=== PATIENT | female | born 1980 | race Caucasian/White ===

== ENCOUNTER → 2020-04-12 | Outpatient (CLI) | payer OTHER ==
[~2020-04-12] MED LIST: ALBU8.5H8 INH; DULO60CA56 PO; GABA300C10 PO
[2020-04-12 08:50] LABS: MEAN CORPUSCULAR HEMOGLOBIN 28.6 pg (27.0-34.8); MEAN CORPUSCULAR HGB CONC 32.6 g/dL (32.4-35.8); MEAN CORPUSCULAR VOLUME 87.8 fL (80-100); MEAN PLATELET VOLUME 6.8 fL (7.4-10.4); PLATELET COUNT 539 x10^3/uL (130-400); RED CELL DISTRIBUTION WIDTH 13.1 % (9.6-15.2)
[2020-04-12 09:00] LABS: INTERNATIONAL NORMALIZED RATIO 0.94 (0.93-1.1)
[2020-04-12 09:02] LABS: ANION GAP 5 mmol/L (5-15); CALCIUM 9.2 mg/dL (8.5-10.1); CHLORIDE 106 mmol/L (98-107)
[2020-04-12 09:07] LABS: CREATININE 0.69 mg/dL (0.55-1.02)
[2020-04-12 09:22] LABS: BASOPHILS # (AUTO) 0.08 x10^3/uL (0-0.1); BASOPHILS % (AUTO) 1 % (0-1); EOSINOPHILS # (AUTO) 0.55 x10^3/uL (0-0.4); EOSINOPHILS % (AUTO) 5 % (1-7); LYMPHOCYTES # (AUTO) 4.99 x10^3/uL (1-3.4); LYMPHOCYTES % (AUTO) 43 % (22-44); MD SCAN; MONOCYTES # (AUTO) 0.63 x10^3/uL (0.2-0.8); MONOCYTES % (AUTO) 5 % (2-9); NEUTROPHILS # (AUTO) 5.49 x10^3/uL (1.8-6.8); NEUTROPHILS % (AUTO) 47 % (42-75)
== END | disposition home or self-care (01) ==
LOC: STAR 07:14
PROVIDERS: ATTEND Neurological Surgery
DX: Z01.818 Encounter for other preprocedural examination (principal); Z11.59 Encounter for screening for other viral diseases; G95.89 Other specified diseases of spinal cord
CPT/HCPCS: 36415; 71046; 80048; 84703; 85025; 85610; 85730; 93005; U0001